=== PATIENT | female | born 1980 | race Hispanic/Latino ===

== ENCOUNTER 2025-02-08 08:59 | Observation (INO) | payer OTHER ==
[2025-02-08] VITALS (15 sets, daily range): BP systolic 117–128; BP diastolic 73–83; PULSE 66–96; RESP 16; TEMP 98.1–98.5; O2SAT 97
[~2025-02-08] VITALS: Ht 162.6 cm; Wt 77.6 kg
[2025-02-08 09:50] LABS: IMMATURE GRANULOCYTE ABSOLUTE 0.01 K/uL (0-1); NUCLEATED RED BLOOD CELLS 0.0 % (0.0-0.19); PLATELET COUNT (AUTO) 274 K/uL (130-400); RED BLOOD CELL COUNT(AUTO) 4.23 MIL/uL (4.00-5.50); RED CELL DISTRIBUTION WIDTH 12.3 % (11.0-15.5); WHITE BLOOD COUNT (AUTO) 7.8 K/uL (4.8-10.8)
[2025-02-08 10:03] LABS: INR 0.95 (0.85-1.15)
[2025-02-08] MEDS ORDERED: SENNOSIDES 8.6 MG TABLET PO PRN (10:30)
[2025-02-08 10:38] LABS: CREATININE 1.9 mg/dL (0.5-1.0); GLOMERULAR FILTR. RATE CALC 33.0 mL/min (>90); GLUCOSE,RANDOM 100.0 mg/dL (70-105); SODIUM SERUM 137.0 mmol/L (136-145); UREA NITROGEN, BLOOD 14.0 mg/dL (7-18)
[2025-02-08 10:42] LABS: ASPARTATE AMINOTRANSFERASE 19.0 U/L (10-37); TOTAL PROTEIN, SERUM 7.1 g/dL (6.0-8.3)
--- NOTE | 2025-02-08 10:44 | HP ---
[facility] HISTORY AND PHYSICAL Date of Service: Feb 08, 2025 Time of Service: 10:00 HISTORY OF PRESENT ILLNESS: [ ] ADMISSION DATE: 02/08/25 CC: WORSENING OF KIDNEY FUNCTION: DIRECT ADMIT FOR KIDNEY BX. PCP: DR CONDON This is a 44-year-old female that presents in ED needing a kidney biopsy patient is a direct admit from [facility] Dr Condon. Patient reports her kidney function eGFR has been decreasing she is currently stage III, symptoms on occasionally edema to lower extremities and fatigue. Urine output has been adequately. She denied chest pain, shortness a breath dizziness. Patient is going to had kidney biopsy today and she will be on observation overnight. Seizure risks and benefits were discussed with patient and she verbalized understanding consent was signed. REVIEW OF SYSTEMS CONSTITUTIONAL: Denies fevers, chills, or night sweats. No unintentional weight loss reported. NEUROLOGICAL: Denies headache, amaurosis fugax, motor weakness, sensory deficit, vertigo/spinning sensation, gait abnormalities, or tremors. ENT: No hearing loss, otalgia, otorrhea, rhinitis, rhinorrhea, hoarseness, or sore throat. CARDIOVASCULAR: Denies any exertional angina, dyspnea on exertion, orthopnea, paroxysmal nocturnal dyspnea, palpitations, life-threatening arrhythmias, claudication. PULMONARY: Denies any shortness of breath, cough, phlegm/sputum, hemoptysis, pleuritic chest pain. SLEEP: Denies morning headaches, daytime somnolence or napping. Denies difficul ty falling asleep, staying asleep, waking from sleep. Denies knowledge of snoring. GASTROINTESTINAL: Denies any type of dysphagia to either liquids or solids. Denies nausea, vomiting, pyrosis, early satiety, abdominal pain, diarrhea, constipation, or changes in stool consistency or caliber. Denies coffee-ground emesis, hematemesis, hematochezia, or melanotic stools. GENITOURINARY: Denies frequency, urgency, nocturia, hematuria or incontinence (Storage/Irritative symptoms.) Low urinary stream, straining to void, urinary intermittency or hesitancy, splitting of the voiding stream, terminal dribbling. ENDOCRINOLOGIC: Denies polyuria, polydipsia, polyphagia or heat/cold intole rances. HEMATOLOGIC: Denies thrombophilia/previous clots, or coagulopathy/bleeding disorders. ONCOLOGIC: Denies personal history of malignancy. DERMATOLOGIC: Denies rashes or pruritus. PSYCHIATRIC: Denies any suicidal or homicidal ideation. Denies hallucinations. PAST MEDICAL HISTORY: [ ] Hypertension hyperlipidemia chronic renal failure stage III PAST SURGICAL HISTORY: [ ] None PAST SOCIAL HISTORY: [ ] Denies smoking tobacco products and alcohol use FAMILY HISTORY: [ ] noncontributory Coded Allergies: No Known Allergies (Unverified Allergy, Unknown, 02/08/25) PHYSICAL EXAM GENERAL APPEARANCE: The patient is awake, alert, and oriented, in no acute cardiopulmonary distress. NEUROLOGICAL: Cranial nerves II-XII grossly intact. Motor is 5/5 in bilateral upper and lower extremities proximal to distal. No sensory deficits. HEENT: Face is symmetric. Pupils are equal and reactive. Extraocular movements are intact. NECK: Supple. No JVD. No thyromegaly. No submental, submandibular, pre- /postauricular, occipital or supraclavicular lymphadenopathy. CHEST: Normal chest expansion. No Telemetry. LUNGS: Absence of any rales, rhonchi or any wheezing. CARDIOVASCULAR: Regular. S1 and S2 normal. No appreciable rubs, murmurs or gallops. ABDOMEN: Soft, nontender, and nondistended. There is no rebound, voluntary guarding, or rigidity. : Deferred. No Doyle. EXTREMITIES: Non-edematous and not cyanotic. No clubbing. Good capillary refill. SKIN: No skin breakdown. Vital Sign (Last 24 Hours) 02/08/25 02/08/25 09:00 09:35 Temp 98.4 Pulse 78 Resp 18 B/P (MAP) 139/91 Pulse Ox 99 O2 Delivery Room Air* O2 Flow Rate 0 FiO2 21 LABS: Laboratory: Test 02/08/25 09:45 Range/Units White Blood Count 7.8 4.8-10.8 K/uL Red Blood Count 4.23 4.00-5.50 MIL/uL Hemoglobin 13.1 12.0-16.0 g/dL Hematocrit 38.1 36-48 % Mean Corpuscular Volume 90.1 79-99 fL Mean Corpuscular Hemoglobin 31.0 27.0-33.0 pg Mean Corpuscular Hemoglobin Concent 34.4 32.0-36.0 g/dL Red Cell Distribution Width 12.3 11.0-15.5 % Platelet Count 274 130-400 K/uL Mean Platelet Volume 10.8 H 7.5-10.5 fL Immature Granulocyte % (Auto) 0.1 0-1 % Neutrophils (%) (Auto) 68.1 40.0-77.0 % Lymphocytes (%) (Auto) 25.0 21.0-51.0 % Monocytes (%) (Auto) 4.6 3.0-13.0 % Eosinophils (%) (Auto) 1.4 0.0-8.0 % Basophils (%) (Auto) 0.8 0.0-5.0 % Neutrophils # (Auto) 5.3 1.8-7.7 K/uL Lymphocytes # (Auto) 1.9 1.0-4.8 K/uL Monocytes # (Auto) 0.4 0.1-1.0 K/uL Eosinophils # (Auto) 0.11 0.00-0.70 K/uL Basophils # (Auto) 0.06 0.00-0.20 K/uL Absolute Immature Granulocyte (auto 0.01 0-1 K/uL Nucleated Red Blood Cells 0.0 0.0-0.19 % DIAGNOSTICS / RADIOLOGY: [ ] ASSESSMENT: Chronic renal function worsening Chronic problems: HTN, HLD PLAN: [ ] Admit:medical surgical floor condition: Guarded Status: full coded IVF:heplock Consultants: drywall worker Procedure: IR for kidney bx. Labs cbc, cmp, mag+ in am Replace electrolytes as needed as per protocol to keep potassium above 4.0 magnesium 2.0. Home medications reviewed: will start Norvasc 10 mg daily PRN: MEDICATIONS Tylenol 650 mg po every 4 hrs for fever zofran 4 mg IV every 6 hrs for n/v Hydralazine 5 mg IV every 4 hrs systolic pressure > 160 bowel regiment: Senna bid as needed for constipation Pain management: Tylenol 650 mg as needed Supportive measures: DVT ppx, GI ppx all questions answered time spent: > 35 min Supervising MD: Dr. Ariel davis/mikey This document was generated in part using voice recognition software, occasional wrong word or sound alike substitutions may have occurred due to the inherent limitations of voice recognition software. Read the chart carefully and recognize using context, where the substitutions have occurred. Although every effort was made to edit the content, hair and makeup designer and typing errors may occur ADVANCED CARE PLANNING 1. Which of the following were discussed? Hospice Care - Yes / No Therapeutic options - Yes / No Advance Directives - Yes / No Other discussions - 2. Discussed with who? 3. Voluntary nature of this service was explained to the patient? Yes / No 4. Amount of time spent - 5. Reviewed by Physician? (if this service was performed by NPP) Yes / No ATTESTATION BY PHYSICIAN I have seen and examined the patient. I reviewed the documentation, medical decision making, and treatment plan as noted by the mid-level provider above. I agree with the findings and plan of care. MICHAEL PIERSON MD, [facility] Feb 08, 2025 10:44
[2025-02-08] MEDS ORDERED: LIDOCAINE HCL 1% 20 ML VIAL ONE (11:16)
--- NOTE | 2025-02-08 12:20 | NUR ---
US GD LT KIDNEY BX PROCEDURE PERFORMED BY DR Pari EDWARDS. PUNCTURE SITE LT LOWER BACK AND PATIENT TOLERATED PROCEDURE WELL. SPECIMEN X 4 COLLECTED AND SENT TO LAB. END OF PROCEDURE AT 1150. BIOPSY NEEDLE REMOVED AND DRESSING APPLIED. NO BLEEDING NOTED. REPORT GIVEN TO NURIS ZUÑIGA AND PATIENT TRANSPORTED TO [facility] VIA STRETCHER AT 1120. AAO X3 WITH NO C/O PAIN.
--- NOTE | 2025-02-08 12:24 | NUR ---
PATIENT ARRIVED TO ROOM FROM IR PROCEDURE.
--- NOTE | 2025-02-08 17:29 | NUR ---
REPORT GIVEN TO EVELIO
[2025-02-09 01:15] VITALS: BP 128/80; PULSE 87; RESP 16; TEMP 98.8
[2025-02-09 04:17] VITALS: BP 139/82; PULSE 80; RESP 16; TEMP 98.1
[2025-02-09 04:43] LABS: IMMATURE GRANULOCYTE ABSOLUTE 0.04 K/uL (0-1); NUCLEATED RED BLOOD CELLS 0.0 % (0.0-0.19); PLATELET COUNT (AUTO) 221 K/uL (130-400); RED BLOOD CELL COUNT(AUTO) 3.43 MIL/uL (4.00-5.50); RED CELL DISTRIBUTION WIDTH 12.4 % (11.0-15.5); WHITE BLOOD COUNT (AUTO) 8.9 K/uL (4.8-10.8)
--- NOTE | 2025-02-09 04:48 | HP ---
This is an initial Nephrology history and physical. The patient admitted for kidney biopsy and multiple other comorbidities are present. Patient has renal failure and proteinuria HISTORY OF PRESENT ILLNESS: This patient has multiple medical problems. The patient has underlying kidney disease, suspected glomerulonephritis, chronic kidney disease, hypertension, proteinuria, and previous hyperkalemia. The patient has elevated BUN and creatinine. The patient is now admitted because of worsening renal function and need for kidney biopsy and possibility of a nephropathy is present. All other systems unchanged, underlying hypertension. PAST MEDICAL HISTORY: As above, hyperlipidemia, hypertension, anemia, and underlying kidney problems. SURGICAL HISTORY: Breast augmentation. SOCIAL HISTORY: No smoking, alcohol, or drug abuse. FAMILY HISTORY: Noncontributory. ALLERGIES: No allergies at this time. REVIEW OF SYSTEMS: CONSTITUTIONAL: No fevers, chills, or rigors. HEENT: No headache, oral ulcers, sore throat, or difficulty swallowing. No new vision complaints. RESPIRATORY: No cough, expectoration, hemoptysis, or pleuritic pain. CARDIOVASCULAR: No orthopnea or PND. GASTROINTESTINAL: Negative for nausea, vomiting, constipation, or diarrhea. GENITOURINARY: Negative for hematuria. DERMATOLOGIC: No rashes or pruritic skin lesions. ENDOCRINE: No polyuria, polydipsia or polyphagia. PSYCHIATRIC: Negative for anxiety, depression, hallucinations. NEUROLOGIC: No seizure or syncope. MUSCULOSKELETAL: No joint swelling, redness, inflammation. Other systemic review is unchanged. PHYSICAL EXAM: GENERAL: Pale, in no other distress. VITAL SIGNS: Blood pressure has been 139/90, pulse 78, respirations 18. HEENT: Head is atraumatic, normocephalic. Pupils are round and reactive. Conjunctivae not pale. Oral mucosa is not dry. NECK: Supple. No masses or bruits. Thyroid palpable. Neck has no bruits. CHEST: Shows equal thoracic percussion note being resonant in all areas. CARDIAC: Regular rhythm. No rub, no S3 or S4. No parasternal heave. ABDOMEN: No guarding or tenderness. Bowel sounds present. EXTREMITIES: With no edema. No cyanosis or clubbing. BACK: No back tenderness or back deformity. LABS: Labs have been reviewed. Elevated creatinine of 1.9. Old records reviewed. Imaging studies are personally reviewed. The patient has BUN of 14. PT and APTT is normal. Low albumin of 3.4. Previous urine has shown proteinuria. The patient has microscopic hematuria. Multiple serological workup has been negative including HERNANDO and ANCA before. Hepatitis studies have been negative. The patient's urine and serum immunofixation has been negative. Urine lphoecg-pq-qvzgsmshem ratio has been recently up to 5 g in 24 hours. PROBLEMS: The patient has nephrotic-range proteinuria of unknown etiology with microscopic hematuria. The patient has suspected glomerulonephritis. The patient has multiple serological workup negative. Underlying hypertension, underlying hyperlipidemia, underlying multiple other comorbidities. 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 * I have offered kidney biopsy. Risks and complications explained. * The patient will get followup on electrolyte, renal function, and overall status. * Intake, output, and weight will be monitored. * NSAIDs will be avoided. The patient has been explained risk complications of biopsy and will be monitoring closely. Any aspirin or nonsteroidal drugs will be avoided. IV Dilaudid 0.5 q. 6h for severe pain. Followup on blood pressure, electrolyte, renal function, and anemia overall status,. The patient was given the opportunity to ask questions for biopsy, risks, complications, and I have answered it satisfactorily. The patient was seen several times today. Patient was seen several times today total time spent was more than 75 minutes excluding the procedures TID: [id number] RECEIPT: [id number] [email or web address]
[2025-02-09 07:48] VITALS: BP 126/82; PULSE 77; RESP 18; TEMP 98.1
[2025-02-09] MEDS: FAMOTIDINE 20MG TAB PO SCH (08:17)
[2025-02-09] MEDS: amLODIPine 5 MG TAB PO SCH (08:17)
--- NOTE | 2025-02-09 08:17 | NUR ---
home meds pt reports to have taken kidney support vitamins, atorvastatin 10mg, amlodipine 10mg, kelly-isaac 1mg-60mg this morning. teachings given to pt to about home medications. pt acknowledged information. scheduled amlodipine not given at this time.
--- NOTE | 2025-02-09 09:50 | NUR ---
DCP:HOME Pt currently lives at home with her mother and daughter. Pt denies having any DME, home health, or provider services. Pt is able to complete ADLs independently. PCP is [facility] Valenzuela/ Dr. Condon and uses [facility] for any RX needs. At DC pt will want to go home and family can assist with transportation.
--- NOTE | 2025-02-09 10:24 | DS ---
Discharge Summary Hospital Course Summary: ADMISSION DATE: 02/08/25 CC: WORSENING OF KIDNEY FUNCTION: DIRECT ADMIT FOR KIDNEY BX. PCP: DR EDWARDS This is a 44-year-old female that presents in ED needing a kidney bi opsy patient is a direct admit from [facility] Dr Edwards. Patient reports her kidney function eGFR has been decreasing she is currently stage III, symptoms on occasionally edema to lower extremities and fatigue. Urine output has been adequately. She denied chest pain, shortness a breath dizziness. Patient is going to had kidney biopsy today and she will be on observation overnight. Seizure risks and benefits were discussed with patient and she verbalized understanding consent was signed. the patient post procedure renal bx. tolerated well procedure: denies flank pain noted no hematoma. left sided flank. Reports no hematuria. the patient will follow up for pathology reports with Dr Edwards is hemodynamically stable for discharge home. Procedure(s): PATIENT NAME: CRISTI MINOR : 1980, SEX: F ADMIT DISCHARGE DT: ATTENDING: MICHAEL PIERSON MD DICTATED: HUMBERTO EDWARDS MD REPORT: PROCEDURE REPORT LEFT KIDNEY BIOPSY PROCEDURE NOTE BRIEF HISTORY: The patient has been seen and kidney biopsy done. PRINCIPAL TECHNICAL WRITER: Dr. Humberto Edwards INDICATION FOR KIDNEY BIOPSY: Kidney failure, proteinuria with nephrotic-range proteinuria. The patient has underlying hypertension and hyperlipidemia, and strict aseptic precautions used. PROCEDURE NOTE: The patient had 3 pieces obtained and handed over for pathology analysis of the kidney biopsy. The patient had no difficulty during the procedure. No immediate postop complication. As soon as the patient was turned back, the patient went little bradycardic and became little dizzy. We gave her fluid and she improved immediately. Her blood pressure did drop up to 80-90 systolic at that time. She was possibly having vasovagal episodes. No clear hematuria. No other symptoms were present. Otherwise, the patient remained stable. The patient was advised strict bed rest and vitals well be checked very frequently. Kidney biopsy order given. Left kidney was biopsied and we will be monitoring the overall status. No immediate complication, except a slight vagal episode with dizziness and then the patient was stabilized on the floor. The specimen was sent to the expert lab for analysis. TID: [id number] RECEIPT: [id number] ELECTRONICALLY SIGNED BY: DATE TIME: Assessment/Plan: discharged dx's Chronic renal function worsening requiring renal bx. Chronic problems: HTN, HLD PLAN: [ ] ADMISSION DATE: 02/08/2025 DISCHARGE DATE: 02/09/2025 DISPOSITION: Home CONDITION: Stable WAX MOLDER(S): Clearing Hand's FOLLOW UP APPOINTMENT(S): DR Edwards one wk PROCEDURES: Liver bx IMAGING (S) report attached to summary : MICROBIOLOGY: report attached to summary; ACTIVITY: ab latoya HOME MEDICATIONS remain the same upon discharged CHANGES ON HOME MEDICATIONS none NEW MEDICATIONS none TEACHING: Emergency instructions: The patient was instructed to present to the nearest Emergency Department or call 911 should their symptoms return or worsen. Home Medications: Reported Medications Amlodipine Besylate (Amlodipine Besylate) 10 Mg Tablet, 1 TAB PO DAILY for 30 Days, #30 TAB 0 Refills 02/09/25 Atorvastatin Calcium (Atorvastatin Calcium) 10 Mg Tablet, 1 TAB PO DAILY for 30 Days, #30 TAB 0 Refills 02/09/25 Folic Acid/Vitamin B Comp W-C (Nubia-Maris Tablet) 0.8 Mg Tablet, 1 TAB PO DAILY for 30 Days, #30 TAB 0 Refills 02/09/25 Continued Medications: Amlodipine Besylate (Amlodipine Besylate) 10 Mg Tablet 1 TAB PO DAILY for 30 Days, #30 TAB 0 Refills Atorvastatin Calcium (Atorvastatin Calcium) 10 Mg Tablet 1 TAB PO DAILY for 30 Days, #30 TAB 0 Refills Folic Acid/Vitamin B Comp W-C (Nubia-Maris Tablet) 0.8 Mg Tablet 1 TAB PO DAILY for 30 Days, #30 TAB 0 Refills Time spent arranging discharge: 31-60 minutes ATTESTATION BY PHYSICIAN I have seen and examined the patient. I reviewed the documentation, medical decision making, and treatment plan as noted by the mid-level provider above. I agree with the findings and plan of care. MICHAEL PIERSON MD, [facility] Feb 09, 2025 10:24
[2025-02-09] MEDS ORDERED: FOLI0.8T22 PO (10:29)
[2025-02-09] MEDS ORDERED: ATOR10TA69 PO (10:29)
[2025-02-09] MEDS ORDERED: AMLO-258 PO (10:29)
[2025-02-09 11:51] VITALS: BP 135/85; PULSE 79; RESP 18; TEMP 98.8
[2025-02-09 12:11] LABS: CREATININE 1.9 mg/dL (0.5-1.0); GLOMERULAR FILTR. RATE CALC 33.0 mL/min (>90); GLUCOSE,RANDOM 102.0 mg/dL (70-105); SODIUM SERUM 139.0 mmol/L (136-145); UREA NITROGEN, BLOOD 20.0 mg/dL (7-18)
[2025-02-09 12:16] LABS: ASPARTATE AMINOTRANSFERASE 16.0 U/L (10-37); TOTAL PROTEIN, SERUM 5.7 g/dL (6.0-8.3)
--- NOTE | 2025-02-09 12:40 | PR ---
LEFT KIDNEY BIOPSY PROCEDURE NOTE BRIEF HISTORY: The patient has been seen and kidney biopsy done. BREAKDOWN MILL OPERATOR: Dr. Jeremiah Condon INDICATION FOR KIDNEY BIOPSY: Kidney failure, proteinuria with nephrotic-range proteinuria. The patient has underlying hypertension and hyperlipidemia, and strict aseptic precautions used. PROCEDURE NOTE: The patient had 3 pieces obtained and handed over for pathology analysis of the kidney biopsy. The patient had no difficulty during the procedure. No immediate postop complication. As soon as the patient was turned back, the patient went little bradycardic and became little dizzy. We gave her fluid and she improved immediately. Her blood pressure did drop up to 80-90 systolic at that time. She was possibly having vasovagal episodes. No clear hematuria. No other symptoms were present. Otherwise, the patient remained stable. The patient was advised strict bed rest and vitals well be checked very frequently. Kidney biopsy order given. Left kidney was biopsied and we will be monitoring the overall status. No immediate complication, except a slight vagal episode with dizziness and then the patient was stabilized on the floor. The specimen was sent to the expert lab for analysis. TID: [id number] RECEIPT: [id number]
--- NOTE | 2025-02-09 13:00 | NUR ---
ROUND AT BEDSIDE. TEACHINGS GIVEN TO PT. GAVE THE OKAY TO DISCHARGE PT.
--- NOTE | 2025-02-09 14:30 | PN ---
NEPHROLOGY PROGRESS NOTE Date/Time Patient Seen: Feb 09, 2025 SUBJECTIVE: This is a 44-year-old female with a past medical history of hypertension, hyperlipidemia, chronic kidney disease. She presented to the hospital for renal biopsy. S/p renal biopsy on 02/08/2025, pending pathology results. She denies any pain or hematuria. Urine was noted Blood pressure is under adequate control Hemoglobin has remained stable She was seen in the medical floor, in no acute distress REVIEW OF SYSTEMS: GENERAL: Negative for any nausea, vomiting, fevers, chills, or weight loss. NEUROLOGIC: Negative for any blurry vision, blind spots, double vision, facial asymmetry, dysphagia, dysarthria, hemiparesis, hemisensory deficits, vertigo, ataxia. HEENT: Negative for any head trauma, neck trauma, neck stiffness, photophobia, phonophobia, sinusitis, rhinitis. CARDIAC: Negative for any chest pain, dyspnea on exertion, paroxysmal nocturnal dyspnea, peripheral edema. PULMONARY: Negative for any shortness of breath, wheezing, COPD, or TB exposure. GASTROINTESTINAL: Negative for any abdominal pain, nausea, vomiting, bright red blood per rectum, melena. GENITOURINARY: Negative for any dysuria, hematuria, incontinence. INTEGUMENTARY: Negative for any rashes, cuts, insect bites. RHEUMATOLOGIC: Negative for any joint pains, photosensitive rashes, history of vasculitis or kidney problems. HEMATOLOGIC: Negative for any abnormal bruising, frequent infections or bleeding. Vital Signs (last 8hr) Date Time Temp Pulse Resp B/P (MAP) Pulse Ox O2 Delivery O2 Flow Rate FiO2 02/09/25 11:51 98.8 79 18 135/85 99 Room Air 02/09/25 08:17 Room Air* 0 21 02/09/25 07:48 98.1 77 18 126/82 97 Room Air PHYSICAL EXAM: GENERAL: Alert and oriented x 3. No acute distress. Well-nourished. EYES: EOMI. Anicteric. HENT: Moist mucous membranes. No scleral icterus. No cervical lymphadenopathy. LUNGS: Clear to auscultation bilaterally. No accessory muscle use. CARDIOVASCULAR: Regular rate and rhythm. No murmur. No JVD. ABDOMEN: Soft, non-tender and non-distended. No palpable masses. EXTREMITIES: No edema. Non-tender. SKIN: No rashes or lesions. Warm. NEUROLOGIC: No focal neurological deficits. CN II-XII grossly intact, but not individually tested. PSYCHIATRIC: Cooperative. Appropriate mood and affect. Current Medications Medications (Trade) Dose Ordered Sig/Anthony Route PRN Reason Start Time Stop Time Status Last Admin Dose Admin Acetaminophen (TYLenol 325MG TAB) 650 mg Q4H PRN PO TEMPERATURE GREATER THAN 101.5 02/08/25 10:30 02/08/25 12:46 DC Acetaminophen (TYLenol 500MG TAB) 500 mg Q8H5 PRN PO PAIN LEVEL 1 TO 3 02/08/25 13:00 03/10/25 12:59 Amlodipine Besylate (NorvASC 5MG TAB) 10 mg DAILY PO 02/09/25 09:00 03/11/25 08:59 Famotidine (Pepcid 20mg Tab) 20 mg DAILY PO 02/09/25 09:00 03/11/25 08:59 02/09/25 08:17 20 MG Hydralazine HCl (APRESOLine 20MG INJ) 20 mg Q4H PRN IV ADMINISTER FOR SBP > 160 02/08/25 10:30 03/10/25 10:29 Ondansetron HCl (zoFRAN 4MG INJ) 4 mg Q6H PRN IVP NAUSEA/VOMITING 02/08/25 10:30 03/10/25 10:29 Sennosides (Senna) 1 tab BID PRN PO CONSTIPATION 02/08/25 10:30 03/10/25 10:29 LABORATORY: [ ] Hematology Labs: Test 02/09/25 04:38 Range/Units White Blood Count 8.9 4.8-10.8 K/uL Red Blood Count 3.43 L 4.00-5.50 MIL/uL Hemoglobin 10.6 L 12.0-16.0 g/dL Hematocrit 31.0 L 36-48 % Mean Corpuscular Volume 90.4 79-99 fL Mean Corpuscular Hemoglobin 30.9 27.0-33.0 pg Mean Corpuscular Hemoglobin Concent 34.2 32.0-36.0 g/dL Red Cell Distribution Width 12.4 11.0-15.5 % Platelet Count 221 130-400 K/uL Mean Platelet Volume 10.5 7.5-10.5 fL Immature Granulocyte % (Auto) 0.4 0-1 % Neutrophils (%) (Auto) 66.7 40.0-77.0 % Lymphocytes (%) (Auto) 25.4 21.0-51.0 % Monocytes (%) (Auto) 5.7 3.0-13.0 % Eosinophils (%) (Auto) 1.2 0.0-8.0 % Basophils (%) (Auto) 0.6 0.0-5.0 % Neutrophils # (Auto) 5.9 1.8-7.7 K/uL Lymphocytes # (Auto) 2.3 1.0-4.8 K/uL Monocytes # (Auto) 0.5 0.1-1.0 K/uL Eosinophils # (Auto) 0.11 0.00-0.70 K/uL Basophils # (Auto) 0.05 0.00-0.20 K/uL Absolute Immature Granulocyte (auto 0.04 0-1 K/uL Nucleated Red Blood Cells 0.0 0.0-0.19 % Chemistry Labs: Test 02/09/25 04:38 Range/Units Sodium Level 139 136-145 mmol/L Potassium Level 3.8 3.5-5.1 mmol/L Chloride Level 107 101-111 mmol/L Carbon Dioxide Level 21 21-32 mmol/L Blood Urea Nitrogen 20 H 7-18 mg/dL Creatinine 1.9 H 0.5-1.0 mg/dL Glomerular Filtration Rate Calc 33 >90 mL/min Random Glucose 102 70-105 mg/dL Total Calcium 8.3 L 8.5-10.1 mg/dL Magnesium Level 1.90 1.80-2.40 mg/dL Total Bilirubin 0.3 # 0.2-1.0 mg/dL Aspartate Amino Transf (AST/SGOT) 16 10-37 U/L Alanine Aminotransferase (ALT/SGPT) 25 # 12-78 U/L Alkaline Phosphatase 74 50-136 U/L Total Protein 5.7 L 6.0-8.3 g/dL Albumin 2.7 #L 3.5-5.0 g/dL Coagulation Labs: Test 02/08/25 09:45 Range/Units Prothrombin Time 10.1 9.6-11.6 SEC Prothromb Time International Ratio 0.95 0.85-1.15 Activated Partial Thromboplast Time 26.9 26.3-35.5 SEC DIAGNOSTICS / RADIOLOGY: ASSESSMENT: Patient has acute on chronic renal failure with proteinuria status post kidney biopsy Chronic kidney disease Hypertension Hyperlipidemia PLAN: Labs, diagnostic, radiologic exams reviewed and interpreted by myself and supervising physician. We have reviewed external records in detail Urine was noted clear. Patient may get up and ambulate, if tolerates well she may be discharged Follow-up in the office for results She was instructed to avoid nephrotoxic, nonsteroidal drugs, straining, or heavy lifting Renal diet BiPAP as necessary, for respiratory distress Monitor blood pressure adjust medication doses as needed Avoid hypotensive episodes Strict intake, output, and daily weight should be monitored Please renally adjust medications Avoid contrast if possible Treatment plan discussed with patient Questions were answered We have discussed with the other team physicians in detail about the care plan We will continue to monitor the patient closely ATTESTATION BY PHYSICIAN I have seen and examined the patient. I reviewed the documentation, medical decision making, and treatment plan as noted by the mid-level provider above. I agree with the findings and plan of care. HUMBERTO EDWARDS MD, [facility] Feb 09, 2025 14:30 HUMBERTO EDWARDS MD Feb 09, 2025 22:33
--- NOTE | 2025-02-09 14:43 | NUR ---
DISCHARGE [employer]MENT [employer]PERATOR&OX4. DENIES PAIN OR DIZZINESS AT THIS TIME. PT AWARE TO FOLLOW UP WITH ON 02/21/25 AT 1300. DC'D IV. NO QUESTIONS AT THIS TIME.
--- NOTE | 2025-02-18 11:39 | HMCIMG ---
US BIOPSY RENAL IR INDICATION: PROTEINURIA Sono-guided biopsy of the left kidney was performed by Dr. Condon. IMPRESSION: Details of the finding in the procedure note.
== END 2025-02-09 14:52 | disposition home or self-care (01) ==
LOC: EDH 08:59 → DIRECT 09:00 → 1MS 12:24 → 3AH 17:45
PROVIDERS: ADMIT Internal Medicine; ATTEND Internal Medicine
DX: N17.9 Acute kidney failure, unspecified (principal); I12.9 Hypertensive chronic kidney disease with stage 1 through stage 4 chronic kidney disease, or unspecified chronic kidney disease; N18.30 Chronic kidney disease, stage 3 unspecified; R60.0 Localized edema; R80.9 Proteinuria, unspecified; R31.29 Other microscopic hematuria; E78.5 Hyperlipidemia, unspecified; Z79.899 Other long term (current) drug therapy
CPT/HCPCS: 83735 ×2; 80053 ×2; 85025 ×2; 85610; 85730; 36415 ×2; 88313; 88305; 88346; 88350; 88348; 50200; 76942; G0378 ×28; G0379; J2003